=== PATIENT | female | born 2000 | race African-American/Black ===

== ENCOUNTER 2020-10-23 14:44 | Emergency (ER) | payer OTHER ==
[~2020-10-23] VITALS: Ht 157.5 cm; Wt 64.0 kg
[2020-10-23 14:44] VITALS: BP 116/84
--- NOTE | 2020-10-23 15:43 | PHYS DOC ---
Adult General Chief Complaint Chief Complaint: HAND PROBLEM HPI HPI Patient is a 20-year-old female who states she is . EDC 06 December, G1, P0, 33 weeks 6 days, LMP March [id number]. Patient reports approximately 1 to 2 hours ago she was sitting texting on her cell phone when she noticed her right hand was becoming swollen. Patient states she told her grandmother who had problems with swelling in which she needed to be admitted to the hospital. Patient states that she became concerned and called her mom. Patient states that her hand had some mild discomfort while it was swelling. Patient states that it quickly resolved. Patient states that her hand is no longer swollen and has no pain or discomfort, denies any paresthesias of the right hand. Patient denies any problems with her , states that she can feel her baby move, patient states she is not worried about her baby. Patient denies any vaginal discharge, patient denies her water breaking. Patient reports she sees a healthcare provider name Azalia at , plans to have her baby at [facility]. Patient states her only medication she takes are iron pills. Patient denies allergies to medications. Review of Systems Review of Systems 14 body systems of review of systems have been reviewed. See HPI for pertinent positives and negative responses, otherwise all other systems are negative, nonpertinent or noncontributory. Physical Exam Physical Exam Constitutional: Well developed, well nourished, no acute distress, non-toxic appearance. 20-year-old female in no apparent distress. HENT: Normocephalic, atraumatic. Eyes: Conjunctiva normal, no discharge. Neck: Normal range of motion. Cardiovascular: No cyanosis, distal cap refill less than 2 seconds. Lungs & Thorax: Patient is in no respiratory distress, no audible adventitious lung sounds appreciated. Abdomen: Bowel sounds normal, soft, no tenderness, no masses, no pulsatile masses. Abdomen round, movement appreciated, bedside Doppler heart tones equals 150. Skin: Warm, dry, no erythema, no rash. Back: No tenderness, no CVA tenderness. Extremities: No tenderness, no cyanosis, no clubbing, ROM intact, no edema. No swelling or edema or erythema appreciated of the right hand, distal cap refill less than 2 seconds, 2+ radial pulse. No pain appreciated of the right hand, full AROM/PROM. Neurologic: Alert and oriented X 3, normal motor function, normal sensory function, no focal deficits noted. Psychologic: Affect normal, judgement normal, mood normal. EKG EKG [] Radiology/Procedures Radiology/Procedures [] Heart Score C/O Chest Pain: No Risk Factors: Risk Factors: DM, Current or recent (<one month) smoker, HTN, HLP, family history of CAD, obesity. Risk Scores: Risk Factors: DM, Current or recent (<one month) smoker, HTN, HLP, family history of CAD, obesity. Course & Med Decision Making Course & Med Decision Making Pertinent Labs and Imaging studies reviewed. (See chart for details) 20-year-old female, vital signs reviewed, presents emergency department concerning an episode of right hand swelling that started approximately 1 to 2 hours prior to arrival that resolved prior to arrival. Patient is a with a EDC of December 06, patient denied any problems with her , bedside heart tones per Doppler equals 150. The patient has no vaginal discharge, denies breaking her water. Physical examination was unremarkable. The patient's vital signs are within normal limits, the patient was afebrile, heart rate 75 bpm, 100% O2 saturation on room air, blood pressure 116/84, no concerns for preeclampsia. Discussed with patient this may have been an episodic swelling, there was no concerns at time of examination, recommended with patient to follow-up with OB care for any further swelling, discussed with patient return to ER precautions and concerns. Patient gave verbal understanding of discharge home instructions, follow-up with MANAGER ENERGY, return ER precautions or concerns, patient states she is ready to go home, patient was discharged home without incident. Dragon Disclaimer Dragon Disclaimer This electronic medical record was generated, in whole or in part, using a voice recognition dictation system. Departure Departure: Impression: Primary Impression: Swelling of right hand Disposition: HOME / SELF CARE / HOMELESS Condition: GOOD Referrals: PCP,NO (PCP) Additional Instructions: You were seen today in the emergency department with complaints that your right hand became swollen, your right hand was not swollen today during your examination in the emergency department. heart tones were performed, they were 150 beats per minutes, this is within normal limits. You are not e xperiencing any symptoms of preeclampsia. You have stated that you can feel your baby move. All your vital signs are within normal limits. Your examination was nonconcerning and did not indicate any reason to contact an MANAGER ENERGY immediately or indicate a reason for immediate hospitalization. Please contact your primary care provider or MANAGER ENERGY that is caring for your and let them know that your hand did become swollen for a short time, if this happens again please elevate, please return to the emergency department for worsening symptoms or other concerns. EMERGENCY DEPARTMENT GENERAL DISCHARGE INSTRUCTIONS Thank you for coming to [facility] (ED) today and trusting us with you care. We trust that you had a positivie experience in our Emergency Department. If you wish to speak to the department management, you may call the director at [phone]. YOUR FOLLOW UP INSTRUCTIONS ARE FOLLOWS: 1. Do you have a private Doctor? If you do not have a private doctor, please ask for a resource list of physicians or clinics that may be able to assist you with follow up care. 2. The Emergency Physician has interpreted your x-rays. The X-Ray specialist will also review them. If there is a change in the findings, you will be notified in 48 hours when at all possible. 3. A lab test or culture has been done, your results will be reviewed and you will be notified if you need a change in treatment. ADDITIONAL INSTRUCTIONS AND INFORMATION: 1. Your care today has been supervised by a physician who is specially trained in emergency care. Many problems require more than one evaluation for a complete diagnosis and treatment. We recommend that you schedule your follow up appointment as recommended to ensure complete treatment of you illness or injury. If you are unable to obtain follow up care and continue to have a problem, or if your condition worsens, we recommend that you return to the ED. 2. We are not able to safely determine your condition over the phone nor are we able to give sound medical advice over the phone. For these safety reasons, if you call for medical advice we will ask you to come to the ED for further evaluation. 3. If you have any questions regarding these discharge instructions please call the ED at [phone]. SAFETY INFORMATION: In the interest of safety, wellness, and injury prevention; we encourage you to wear your sealbelt, if you smoke; quite smoking, and we encourage family to use a protective helmet for bicycling and other sporting events that present an increased risk for head injury. IF YOUR SYMPTOMS WORSEN OR NEW SYMPTOMS DEVELOP, OR YOU HAVE CONCERNS ABOUT YOUR CONDITION; OR IF YOUR CONDITION WORSENS WHILE YOU ARE WAITING FOR YOUR FOLLOW UP APPOINTMENT; EITHER CONTACT YOUR PRIMARY CARE DOCTOR, THE PHYSICIAN WHOSE NAME AND NUMBER YOU WERE GIVEN, OR RETURN TO THE ED IMMEDIATELY. WILLA KAMARA APRN Oct 23, 2020 15:43
== END 2020-10-23 15:46 | disposition home or self-care (01) ==
LOC: ER 14:44
DX: O26.893 Other specified pregnancy related conditions, third trimester (principal); M79.89 Other specified soft tissue disorders; Z3A.33 33 weeks gestation of pregnancy
CPT/HCPCS: 99281

== ENCOUNTER 2020-11-15 11:33 | Emergency (ER) | payer OTHER ==
[~2020-11-15] VITALS: Ht 160 cm; Wt 68.3 kg
[2020-11-15 11:52] VITALS: BP 141/94
--- NOTE | 2020-11-15 12:33 | PHYS DOC ---
Past History Past Medical History: No Pertinent History (KYAW SHIPMAN APRN) Past Surgical History: No Surgical History (KYAW SHIPMAN APRN) Alcohol Use: None (KYAW SHIPMAN APRN) General Adult EDM: Chief Complaint: DIARRHEA HPI: HPI: Patient is a 20-year-old female who presents with vomiting and diarrhea for 3 days. Patient states "I have had diarrhea a few times and vomited a few times, but I am still able to keep down liquids and food but I feel sick to my stomach". "I have been taking Zofran at home and it has helped a little". Patient is 37 weeks . G1, P0. "The baby is still moving around and kicking like normal". Denies dysuria. "I been making sure to drink a lot of water so I do not get dehydrated".Patient denies abdominal pain. Denies fever. Denies recent exposure to illness. Patient does not have a designated OB. Patient seen at the health department. Denies health history. (KYAW SHIPMAN APRN) Review of Systems: Review of Systems: Constitutional: Denies fever or chills Eyes: Denies change in visual acuity HENT: Denies nasal congestion or sore throat Respiratory: Denies cough or shortness of breath Cardiovascular: Denies chest pain or edema GI: Reports nausea, vomiting, diarrhea : Denies dysuria Musculoskeletal: Denies back pain or joint pain Integument: Denies rash Neurologic: Denies headache, focal weakness or sensory changes Endocrine: Denies polyuria or polydipsia Lymphatic: Denies swollen glands Psychiatric: Denies depression or anxiety (KYAW SHIPMAN APRN) Allergies: Allergies: Allergies Coded Allergies Type Severity Reaction Last Updated Verified No Known Drug Allergies 11/15/20 No (KYAW SHIPMAN APRN) Physical Exam: PE: Constitutional: Well developed, well nourished, no acute distress, non-toxic appearance. [] HENT: Normocephalic, atraumatic, bilateral external ears normal, oropharynx moist, no oral exudates, nose normal. [] Eyes: PERRLA, EOMI, conjunctiva normal, no discharge. [] Neck: Normal range of motion, no tenderness, supple, no stridor. [] Cardiovascular:Heart rate regular rhythm, no murmur [] Lungs & Thorax: Bilateral breath sounds clear to auscultation [] Abdomen: Bowel sounds normal, soft, no tenderness, no masses, no pulsatile masses. [] Skin: Warm, dry, no erythema, no rash. [] Back: No tenderness, no CVA tenderness. [] Extremities: No tenderness, no cyanosis, no clubbing, ROM intact, no edema. [] Neurologic: Alert and oriented X 3, normal motor function, normal sensory function, no focal deficits noted. [] Psychologic: Affect normal, judgement normal, mood normal. [] (KYAW SHIPMAN APRN) Current Patient Data: Vital Signs: Vital Signs Date Time Temp Pulse Resp B/P (MAP) Pulse Ox O2 Delivery O2 Flow Rate FiO2 11/15/20 11:52 97.9 82 16 141/94 98 Room Air (KYAW SHIPMAN APRN) EKG: EKG: [] (KYAW SHIPMAN APRN) Radiology/Procedures: Radiology/Procedures: [] (KYAW SHIPMAN APRN) Heart Score: C/O Chest Pain: No Risk Factors: Risk Factors: DM, Current or recent (<one month) smoker, HTN, HLP, family hi story of CAD, obesity. Risk Scores: Score 0 - 3: 2.5% MACE over next 6 weeks - Discharge Home Score 4 - 6: 20.3% MACE over next 6 weeks - Admit for Clinical Observation Score 7 - 10: 72.7% MACE over next 6 weeks - Early Invasive Strategies (KYAW SHIPMAN APRN) Course & Med Decision Making: Course & Med Decision Making Pertinent Labs and Imaging studies reviewed. (See chart for details) [] 20-year-old female presents with nausea/vomiting/diarrhea for 3 days. Patient is 37 weeks . Patient is seen by the health department does not have a designated OB she sees. Patient given Zofran for nausea. UA obtained to rule out infection. Urine was negative for infection. Patient reports she feels much better after Zofran. Will be sending patient home with a prescription for Zofran. Patient needs to follow-up with health department tomorrow for further management. Patient is hemodynamically stable. (KYAW SHIPMAN APRN) Dragon Disclaimer: Dragon Disclaimer: This electronic medical record was generated, in whole or in part, using a voice recognition dictation system. (KYAW SHIPMAN APRN) Attending Co-Sign The patient was seen and interviewed as well as examined at the bedside. The chart was reviewed. The case was discussed. Agree with the plan of care. (GABI CAR DO) Departure Departure: Impression: Primary Impression: Nausea vomiting and diarrhea Disposition: HOME / SELF CARE / HOMELESS Condition: STABLE Referrals: PCP,NO (PCP) Patient Instructions: Diarrhea, [id number], Nausea and Vomiting, [id number] Additional Instructions: You were seen in the emergency room for nausea, vomiting and diarrhea. You were given Zofran which you stated improved your symptoms. Sending you home with a prescription for Zofran. Please call the health department tomorrow make a follow-up appointment with OB. Return to the emergency room if you have worsening symptoms or concerns. EMERGENCY DEPARTMENT GENERAL DISCHARGE INSTRUCTIONS Thank you for coming to [facility] (ED) today and trusting us with you care. We trust that you had a positivie experience in our Emergency Department. If you wish to speak to the department management, you may call the director at . YOUR FOLLOW UP INSTRUCTIONS ARE FOLLOWS: 1. Do you have a private Doctor? If you do not have a private doctor, please ask for a resource list of physicians or clinics that may be able to assist you with follow up care. 2. The Emergency Physician has interpreted your x-rays. The X-Ray specialist will also review them. If there is a change in the findings, you will be notified in 48 hours when at all possible. 3. A lab test or culture has been done, your results will be reviewed and you will be notified if you need a change in treatment. ADDITIONAL INSTRUCTIONS AND INFORMATION: 1. Your care today has been supervised by a physician who is specially trained in emergency care. Many problems require more than one evaluation for a complete diagnosis and treatment. We recommend that you schedule your follow up appointment as recommended to ensure complete treatment of you illness or injury. If you are unable to obtain follow up care and continue to have a problem, or if your condition worsens, we recommend that you return to the ED. 2. We are not able to safely determine your condition over the phone nor are we able to give sound medical advice over the phone. For these safety reasons, if you call for medical advice we will ask you to come to the ED for further evaluation. 3. If you have any questions regarding these discharge instructions please call the ED at [phone]. SAFETY INFORMATION: In the interest of safety, wellness, and injury prevention; we encourage you to wear your sealbelt, if you smoke; quite smoking, and we encourage family to use a protective helmet for bicycling and other sporting events that present an increased risk for head injury. IF YOUR SYMPTOMS WORSEN OR NEW SYMPTOMS DEVELOP, OR YOU HAVE CONCERNS ABOUT YOUR CONDITION; OR IF YOUR CONDITION WORSENS WHILE YOU ARE WAITING FOR YOUR FOLLOW UP APPOINTMENT; EITHER CONTACT YOUR PRIMARY CARE DOCTOR, THE PHYSICIAN WHOSE NAME AND NUMBER YOU WERE GIVEN, OR RETURN TO THE ED IMMEDIATELY. Scripts Ondansetron Hcl (ZOFRAN) 4 Mg Tablet 4 MG PO TID PRN PRN for NAUSEA, #9 TAB Prov: KYAW SHIPMAN APRN 11/15/20 KYAW SHIPMAN APRN Nov 15, 2020 12:33 GABI CAR DO Nov 16, 2020 06:19
[2020-11-15] MEDS ORDERED: ONDANSETRON ODT 4 MG TAB.RAPDIS PO ONE (12:45)
[2020-11-15 14:09] LABS: BILIRUBIN,URINE NEG (NEG); CLARITY,URINE CLEAR; COLOR,URINE YELLOW; GLUCOSE,URINE NEG (NEG); NITRITE,URINE NEG (NEG)
[2020-11-15 14:12] LABS: BACTERIA,URINE 0 /HPF (0-FEW); SQUAMOUS EPITHELIAL CELL,UR MOD /LPF
[2020-11-15] MEDS ORDERED: ONDA4TAB7 PO (14:15)
== END 2020-11-15 14:21 | disposition home or self-care (01) ==
LOC: ER 11:33
DX: O21.9 Vomiting of pregnancy, unspecified (principal); R19.7 Diarrhea, unspecified; Z3A.37 37 weeks gestation of pregnancy
CPT/HCPCS: 81001; 99283; Q0162

== ENCOUNTER 2021-05-19 07:36 | Emergency (ER) | payer OTHER ==
[~2021-05-19] VITALS: Ht 160 cm; Wt 68.3 kg
[~2021-05-19 07:36] MED LIST: ONDA4TAB7 PO
[2021-05-19 07:41] VITALS: BP 141/94
--- NOTE | 2021-05-19 08:19 | PHYS DOC ---
Past History Past Medical History: No Pertinent History Past Surgical History: No Surgical History Alcohol Use: None Adult General Chief Complaint Chief Complaint: VAGINAL BLEEDING [facility] HPI Patient is a 20yo at 13w0d presenting for vaginal bleeding. Patient reports she woke up in urinated this morning when on wiping she noticed some spotting red blood. No pain, no other symptoms, but patient was immediately concerned and called her PLAN COORDINATOR office. Said office did not picker tender and so she presented to ER for evaluation. She is asymptomatic, has had no recurrence of bleeding but is worried as she was told if she ever had vaginal bleeding during this that she will need RhoGAM due to her blood type being negative and babies being positive. She states she has had good coverage, was last seen yesterday by PLAN COORDINATOR and had an unremarkable obstetric ultrasound showing x1 live single intrauterine fetus. She has no other medical issues and takes no medications besides daily Review of Systems Review of Systems Fourteen body systems of review of systems have been reviewed. See HPI for pertinent positives and negative responses, other keys all other systems are negative, non-pertinent or non-contributory Allergies Allergies Allergies Coded Allergies Type Severity Reaction Last Updated Verified No Known Drug Allergies 11/15/20 No Physical Exam Physical Exam Constitutional: Well developed, well nourished, no acute distress, non-toxic appearance. HENT: Normocephalic, atraumatic, bilateral external ears normal, oropharynx moist, no oral exudates, nose normal. Eyes: PERRLA, EOMI, conjunctiva normal, no discharge. Neck: Normal range of motion, no tenderness, supple, no stridor. Cardiovascular: Heart rate regular, sinus rhythm, no murmurs rubs or gallops Lungs & Thorax: Bilateral breath sounds clear to auscultation Abdomen: Bowel sounds normal, soft and gravid, no tenderness, no masses, no pulsatile masses. Nonsurgical abdomen, no peritoneal signs. No ongoing vaginal bleeding. heart tones appreciated at 152 bpm via Doppler Skin: Warm, dry, no erythema, no rash. Back: No tenderness, no CVA tenderness. Extremities: No tenderness, no cyanosis, no clubbing, ROM intact, no edema. Neurologic: Alert and oriented X 3, grossly normal motor & sensory function, no focal deficits noted. Psychologic: Anxious affect and mood Current Patient Data Vital Signs Vital Signs Date Time Temp Pulse Resp B/P (MAP) Pulse Ox O2 Delivery O2 Flow Rate FiO2 05/19/21 07:41 98.2 94 18 141/94 (110) 99 Room Air Vital Signs Date Time Temp Pulse Resp B/P (MAP) Pulse Ox O2 Delivery O2 Flow Rate FiO2 05/19/21 07:41 98.2 94 18 141/94 (110) 99 Room Air EKG EKG [] Radiology/Procedures Radiology/Procedures [] Heart Score C/O Chest Pain: No Risk Factors: Risk Factors: DM, Current or recent (<one month) smoker, HTN, HLP, family history of CAD, obesity. Risk Scores: Risk Factors: DM, Current or recent (<one month) smoker, HTN, HLP, family history of CAD, obesity. Course & Med Decision Making Course & Med Decision Making ABCs unremarkable HPI and physical exam grossly nonconcerning for any emergent or surgical issues Patient presenting with vaginal spotting in setting of recent OB ultrasound performed yesterday and no other external stimuli, trauma or other mechanism of injury Patient contacted PLAN COORDINATOR office, ER visit today was reviewed. I disclose I could perform further diagnostic work-up in ER setting for an otherwise asymptomatic individual with x1 episode of spotting but joint decision among all to defer with PCP/PLAN COORDINATOR outpatient follow-up scheduled later today Dragon Disclaimer Dragon Disclaimer This electronic medical record was generated, in whole or in part, using a voice recognition dictation system. Departure Departure: Impression: Primary Impression: Vaginal bleeding in Disposition: HOME / SELF CARE / HOMELESS Condition: STABLE Referrals: PCP,NO (PCP) Additional Instructions: As discussed prior to ER departure, your vitals, history and physical exam are nonconcerning for any emergent or surgical issues. I disclosed we could offer further diagnostic work-up in ER setting but in setting of recent OB ultrasound and the fact that you have follow-up with your outpatient PLAN COORDINATOR later today, said work-up was deferred. If any concerning signs or symptoms present prior to outpatient follow-up please do not hesitate to come back for repeat evaluation. It was a pleasure to take care of you and I wish you the best going forward VIRGEN LLANES DO May 19, 2021 08:19
== END 2021-05-19 08:50 | disposition home or self-care (01) ==
LOC: ER 07:36
DX: O46.91 Antepartum hemorrhage, unspecified, first trimester (principal); Z3A.13 13 weeks gestation of pregnancy
CPT/HCPCS: 99284

== ENCOUNTER 2021-05-25 08:11 | Emergency (ER) | payer OTHER ==
[~2021-05-25] VITALS: Ht 160 cm; Wt 68.3 kg
[2021-05-25 08:15] VITALS: BP 121/94
--- NOTE | 2021-05-25 08:58 | PHYS DOC ---
Past History Past Medical History: No Pertinent History Past Surgical History: No Surgical History Alcohol Use: None General Adult EDM: Chief Complaint: VAGINAL BLEEDING HPI: HPI: 20-year-old female that is 14 weeks presents with vaginal bleeding. The patient has had a couple episodes of the which she had a small amount of bleeding. She comes in today because she had more bleeding this morning. She only has blood when she urinates into the toilet. She had some blood on the toilet paper when she wiped several times. She has not had any blood since that time. She denies any significant cramping. No vaginal discharge. Denies fever or chills. Review of Systems: Review of Systems: Constitutional: Denies fever or chills Eyes: Denies change in visual acuity HENT: Denies nasal congestion or sore throat Respiratory: Denies cough or shortness of breath Cardiovascular: Denies chest pain or edema GI: Denies abdominal pain, nausea, vomiting, bloody stools or diarrhea : Vaginal bleeding in Musculoskeletal: Denies back pain or joint pain Integument: Denies rash Neurologic: Denies headache, focal weakness or sensory changes Endocrine: Denies polyuria or polydipsia Lymphatic: Denies swollen glands Psychiatric: Denies depression or anxiety Allergies: Allergies: Allergies Coded Allergies Type Severity Reaction Last Updated Verified No Known Drug Allergies 11/15/20 No Physical Exam: PE: Constitutional: Well developed, well nourished, no acute distress, non-toxic appearance. [] HENT: Normocephalic, atraumatic, bilateral external ears normal, oropharynx moist, no oral exudates, nose normal. [] Eyes: PERRLA, EOMI, conjunctiva normal, no discharge. [] Neck: Normal range of motion, no tenderness, supple, no stridor. [] Cardiovascular: Heart rate regular rhythm, no murmur [] Lungs & Thorax: Bilateral breath sounds clear to auscultation [] Abdomen: Bowel sounds normal, soft, no tenderness, no masses, no pulsatile masses. [] Skin: Warm, dry, no erythema, no rash. [] Back: No tenderness, no CVA tenderness. [] Extremities: No tenderness, no cyanosis, no clubbing, ROM intact, no edema. [] Neurologic: Alert and oriented X 3, normal motor function, normal sensory function, no focal deficits noted. [] Psychologic: Affect normal, judgement normal, mood normal. [] EKG: EKG: [] Radiology/Procedures: Radiology/Procedures: [] Impressions: EXAM: OB ULTRASOUND, > 14 WEEKS HISTORY: Vaginal bleeding. COMPARISON: None. TECHNIQUE: Multiple grayscale images, color Doppler, and M-mode images of the uterus are obtained. FINDINGS: There is a single intrauterine gestation in transverse presentation. The placenta is anterior in location without evidence of placenta previa. The amniotic fluid volume is grossly normal. The cervix is 2.7 cm in length. Biometrical data: BPD = 3.1 cm for 15 weeks 5 days. HC = 11.7 cm for 15 weeks 5 days. AC = 8.9 cm for 15 weeks 1 days. FL = 1.6 cm for 14 weeks 5 days. HC/AC ratio = 1.3. Overall, the estimated sonographic gestational age is 15 weeks and 2 days for an estimated date of delivery of 11/14/2021. The estimated date of delivery provided by the last menstrual period is 11/19/2021. There is a three-vessel umbilical cord. There is body motion. The stomach and bladder are identified. The remainder the anatomy is difficult to assess given the early gestational age. The maternal adnexal regions are unremarkable. There is no evidence of placental abruption. IMPRESSION: 1. Single intrauterine fetus with normal heart rate and gestational age based on ultrasound measurements of 15 weeks and 2 days. 2. No acute sonographic finding. 3. Note is made that a formal anatomy survey can be performed at approximately 20 weeks gestation. Electronically signed by: Evette Skaggs MD (05/25/2021 9:39 AM) [id number] DICTATED AND SIGNED BY: EVETTE SKAGGS MD DATE: 05/25/21 0934 CC: GABI CAR DO; PCP,NO ~MTH0 0 Heart Score: C/O Chest Pain: N/A Risk Factors: Risk Factors: DM, Current or recent (<one month) smoker, HTN, HLP, family history of CAD, obesity. Risk Scores: Score 0 - 3: 2.5% MACE over next 6 weeks - Discharge Home Score 4 - 6: 20.3% MACE over next 6 weeks - Admit for Clinical Observation Score 7 - 10: 72.7% MACE over next 6 weeks - Early Invasive Strategies Course & Med Decision Making: Course & Med Decision Making Pertinent Labs and Imaging studies reviewed. (See chart for details) The patient's ultrasound is normal. See official read for details. The patient's labs are unremarkable. Urinalysis negative for infection. She has had no further bleeding in the emergency room. She will follow-up with her OB as needed. She is stable for discharge at this time. [] Dragon Disclaimer: Dragon Disclaimer: This electronic medical record was generated, in whole or in part, using a voice recognition dictation system. Departure Departure: Impression: Primary Impression: Vaginal bleeding during Disposition: HOME / SELF CARE / HOMELESS Condition: STABLE Referrals: PCP,NO (PCP) Patient Instructions: Vaginal Bleeding During , First Trimester GABI CAR DO May 25, 2021 08:58
[2021-05-25 09:36] LABS: BASO % 0 % (0-3); EOS # 0.1 x10^3/uL (0.0-0.7); EOS % 2 % (0-3); HEMATOCRIT 31.7 % (36.0-47.0); HEMOGLOBIN 10.9 g/dL (12.0-15.5); LYMPH # 2.4 x10^3/uL (1.0-4.8); LYMPH % 32 % (24-48); MEAN CORPUSCULAR HEMOGLOBIN 31 pg (25-35); MEAN CORPUSCULAR HGB CONC 34 g/dL (31-37); MEAN CORPUSCULAR VOLUME 92 fL (79-100); MONO # 0.5 x10^3/uL (0.0-1.1); MONO % 6 % (0-9); NEUT # 4.6 x10^3uL (1.8-7.7); NEUT % 60 % (31-73); PLATELET COUNT 161 x10^3/uL (140-400); RED BLOOD COUNT 3.45 x10^6/uL (3.50-5.40); RED CELL DISTRIBUTION WIDTH 13.3 % (11.5-14.5); WHITE BLOOD COUNT 7.6 x10^3/uL (4.0-11.0)
--- NOTE | 2021-05-25 09:41 | RAD ---
EXAM: OB ULTRASOUND, > 14 WEEKS HISTORY: Vaginal bleeding. COMPARISON: None. TECHNIQUE: Multiple grayscale images, color Doppler, and M-mode images of the uterus are obtained. FINDINGS: There is a single intrauterine gestation in transverse presentation. The placenta is anterior in loca tion without evidence of placenta previa. The amniotic fluid volume is grossly normal. The cervix is 2.7 cm in length. Biometrical data: BPD = 3.1 cm for 15 weeks 5 days. HC = 11.7 cm for 15 weeks 5 days. AC = 8.9 cm for 15 weeks 1 days. FL = 1.6 cm for 14 weeks 5 days. HC/AC ratio = 1.3. Overall, the estimated sonographic gestational age is 15 weeks and 2 days for an estimated date of de livery of 11/14/2021. The estimated date of delivery provided by the last menstrual period is 11/19/2021. There is a three-vessel umbilical cord. There is body motion. The stomach and bladder are identified. The remainder the anatomy is difficult to assess given the early gestational age. The maternal adnexal regions are unremarkable. There is no evidence of placental abruption. IMPRESSION: 1. Single intrauterine fetus with normal heart rate and gestational age based on ultrasound measureme nts of 15 weeks and 2 days. 2. No acute sonographic finding. 3. Note is made that a formal anatomy survey can be performed at approximately 20 weeks gestati on. Electronically signed by: Evetet Skaggs MD (05/25/2021 9:39 AM) [id number]
[2021-05-25 09:47] LABS: CALCIUM 8.9 mg/dL (8.5-10.1); CREATININE 0.5 mg/dL (0.6-1.0); GFR 190.3; POTASSIUM 3.7 mmol/L (3.5-5.1)
[2021-05-25 09:53] LABS: ALBUMIN 3.8 g/dL (3.4-5.0); ALBUMIN/GLOBULIN RATIO 1.1 (1.0-1.7); TOTAL BILIRUBIN 0.2 mg/dL (0.2-1.0); TOTAL PROTEIN 7.3 g/dL (6.4-8.2)
[2021-05-25 10:44] LABS: BACTERIA,URINE 0 /HPF (0-FEW); BILIRUBIN,URINE NEG (NEG); CLARITY,URINE HAZY; COLOR,URINE YELLOW; GLUCOSE,URINE NEG (NEG); NITRITE,URINE NEG (NEG); RBC,URINE OCC /HPF (0-2); SQUAMOUS EPITHELIAL CELL,UR MANY /LPF; UROBILINOGEN,URINE 0.2 mg/dL (0.2 mg/dL)
== END 2021-05-25 11:19 | disposition home or self-care (01) ==
LOC: ER 08:11
DX: O46.92 Antepartum hemorrhage, unspecified, second trimester (principal); Z3A.15 15 weeks gestation of pregnancy
CPT/HCPCS: 36415; 76815; 80053; 81001; 85025; 99284